=== PATIENT | female | born 1975 | race Caucasian/White ===

== ENCOUNTER 2019-03-23 16:22 | Emergency (ER) | payer OTHER ==
--- OUTSIDE RECORDS SUMMARY | 2019-03-23 17:00 | XMS REPORT | Continuity of Care Document ---
:1975 External Reference #:[id number] Author Name Otilio Batista M.D. Address [address] [place] [address] Care Team Providers Name Role Phone Jigar Evans Primary Care Physician Unavailable Payers Date Identification Numbers Payment Provider Subscriber Effective: 2016 Policy Number: [id number] [employer] Ppo Yariel Rivera PayID: [id number] [address] [place] [address] Family History Date Family Member(s) Observation Comments Father Heart Disease Mother A&W Children None Siblings 1 Siblings Oldest of 2 children First Sister A&W Maternal Grandfather due to Old Age () Maternal Grandmother due to Alzheimer's Disease () Social History Type Date Description Comments Sex Unknown Education Highest Level Completed, Master's Degree Marital Status Single Lives With Alone Diet Healthy, Well Balanced 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 Cigarette Use Former Cigarette Smoker ETOH Use Currently consumes alcohol Recreational Drug Use Denies Drug Use Tobacco Use Start: Unknown End: Patient is a former Unknown smoker Smoking Status Reviewed: 03/02/19 Patient is a former smoker Exercise Type/Frequency Exercises regularly Seat Belt/Car Seat Always uses seat belt Currently Active Patient is currently sexually active Contraceptive Methods Current methods include ring (Nuva) STD's Genital Warts STD's HPV Allergies, Adverse Reactions, Alerts Description No Known Drug Allergies Medications Active Medications SIG Qnty Indications Ordering Date Provider Nuvaring place nuvaring 1units Tanner Campos, 01/12/2019 in vagina for 3 CNM 0.12-0.015mg/24HR Ring weeks, remove x [address] a new one Symbicort Unknown 80-4.5mcg/Act Aerosol Adderall prn 120tabs Unknown 10mg Tablets Lexapro 1 po qd Unknown 20mg Tablets Multivitamins 1 po qd Unknown Capsules Klonopin Unknown History Medications Nuvaring place nuvaring in 3units Mendez Maki, 07/31/2016 - 0.12-0.015mg/24HR Ring vagina for 3 MD 04/14/2017 weeks, remove x 1 week, then place a new one Nuvaring place nuvaring Unknown - 0.12-0.015mg/24HR Ring for 3 weeks, 07/31/2016 remove x 1 week Claritin Unknown - 08/27/2017 Medications Administered in Office Medication SIG Qnty Indications Ordering Provider Date PT SCRN Tbco Id as Non User Otilio Batista M.D. 08/30/2018 Injection Vital Signs Date Vital Result Comment 03/02/2019 2:55pm BP Systolic 102 mmHg BP Diastolic 62 mmHg Height 67.5 inches 5'7.50" Weight 115.00 lb BMI (Body Mass Index) 17.7 kg/m2 0 08/30/2018 3:08pm BP Systolic 106 mmHg BP Diastolic 68 mmHg Height 67.5 inches 5'7.50" Weight 117.00 lb BMI (Body Mass Index) 18.1 kg/m2 Last Menstrual Period [id number] 0 08/27/2017 10:55am BP Systolic 122 mmHg BP Diastolic 72 mmHg Height 67.5 inches 5'7.50" Weight 122.00 lb BMI (Body Mass Index) 18.8 kg/m2 Last Menstrual Period [id number] 0 04/14/2017 9:03am BP Systolic 110 mmHg BP Diastolic 64 mmHg Height 67.5 inches 5'7.50" Weight 113.00 lb BMI (Body Mass Index) 17.4 kg/m2 0 09/03/2016 10:06am BP Systolic 118 mmHg BP Diastolic 82 mmHg Height 67.5 inches 5'7.50" Weight 119.00 lb BMI (Body Mass Index) 18.4 kg/m2 Last Menstrual Period [id number] 0 Parity 0 07/31/2016 9:10am BP Systolic 122 mmHg BP Diastolic 70 mmHg Height 67.5 inches 5'7.50" Weight 118.00 lb BMI (Body Mass Index) 18.2 kg/m2 Last Menstrual Period [id number] Results Test Date Facility Test Result H/L Range Note Laboratory test 03/02/2019 [facility] Cytology <pending> [place] [address] [phone] Laboratory test 03/02/2019 [facility] Hepatitis B <pending> [place] [address] Surface Ag [phone] Hepatitis C Antibody <pending> Syphillis Igg W/Reflex RPR <pending> Laboratory 08/30/2018 [facility] Cytology SEE RESULT 1 test [place] [address] BELOW [phone] HIV 1&2 AB 08/30/2018 [facility] HIV 1 2 Nonreactive Nonreactive 2 W/[place] [address] Antibody Results [phone] Laboratory 08/30/2018 [facility] Hepatitis B Nonreactive Nonreactive 3 [place] [address] Surface Ag [phone] Hepatitis C 08/30/2018 [facility] HCV Index < 0.0 [place] [address] [phone] Hepatitis C Antibody Nonreactive Nonreactive Laboratory 08/30/2018 [facility] Syphillis Nonreactive Nonreactive 4 [place] [address] Igg W/Reflex [phone] RPR Laboratory 08/27/2017 [facility] Cytology SEE RESULT 5 [place] [address] BELOW [phone] Laboratory 04/14/2017 [facility] Surgical SEE RESULT 6, 7 [place] [address] Pathology BELOW [phone] Laboratory 09/03/2016 [facility] Surgical SEE RESULT 8 [place] [address] Pathology BELOW [phone] HIV 1/2 AB 07/31/2016 [facility] HIV 1 2 Nonreactive N Nonreactive 9 [place] [address] Antibody [phone] Laboratory 07/31/2016 [facility] Hepatitis B Nonreactive N Nonreactive 10 [place] [address] Surface Ag [phone] Hepatitis C Antibody Nonreactive N Nonreactive 11 Herpes Simplex 07/31/2016 [facility] Herpes Simplex Negative N Negative Type 1&2 [place] [address] Virus I IgG AB [phone] Herpes Simplex Virus II IgG AB Negative N Negative 12 Herpes 07/31/2016 [facility] Herpes Simplex Negative N Negative 13 [place] [address] Type 1 2 IgM 1&2 Igm [phone] Laboratory 07/31/2016 [facility] Syphillis Igg Nonreactive N Nonreactive 14 [place] [address] W/Reflex RPR [phone] Laboratory 07/31/2016 [facility] Cytology SEE RESULT 15 [place] [address] BELOW [phone] GC/Chlamydia 07/31/2016 [facility] Chlamydia Negative [place] [address] trachomatis [phone] Rna Neisseria gonorrhoeae (GC) Rna Negative N Negative Laboratory test 07/31/2016 [facility] Trichomonas Negative N Negative 16 [place] [address] Vaginalis Rna [phone] Human Papilloma Virus Rna POSITIVE Abnormal Negative 17 1 SEE RESULT BELOW Name: YARIEL RIVERA : [address]: Otilio Batista MD Acct: [id number] Unit: [id number] AGE: 43 Location: [facility] Re08/30/18 SEX: F Status: REG REF SPEC: [id number] VINOD: 08/30/18-[address]: Otilio Batista MD REQ: [id number] RECD: 08/31/18120 STATUS: GARETH BENITEZ DR: 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 A. Ectocervical/Endocervical Specimen Adequacy: Satisfactory of evaluation Transformation zone component identified Patient Information: HPV: High risk HPV RNA testing regardless of pap results. Actual Specimen Date: 08/30/18 Last Menstrual Date: 08/02/18 Date of Last Specimen: 08/27/17 Signed by and Reported on: JOZEF Marsh (ASCP) 1537 This Pap test was evaluated with the assistance of the ThinPrep Test Imaging System. Due to cytologic findings at the production team advisor microscope, comprehensive manual rescreening by a Certified Nurse may be required. The Pap Smear is a screening test designed to aid in the detection of premalignant and malignant conditions of the uterine cervix. It is not a diagnostic procedure and should not be used as the sole means of detecting cervical cancer. Both false- positive and false- negative reports do occur. Depending on your risk status, a Pap smear should be obtained and evaluated every 1-3 years. END OF REPORT DEPARTMENT OF PATHOLOGY, [address] [place] [address] Varun Nieves M.D. Director [facility] # [id number] 2 It is recognized that currently available assays for the detection of antibodies to HIV-1 and/or HIV-2 may not detect all infected individuals. HIV antibodies may be undetectable in some stages of the infection and in some clinical conditions. The performance of this assay has not been established for populations of infants or children. Assayed by Chemiluminescence Microparticle Immunoassay on the Siemens Advia Centaur CP. Values obtained with different methods or kits cannot be used interchangeably.The diagnostic specificity of the ADVIA Centaur 1/O/2 Enhanced assay in the low risk population was 99.90% (6052/6058) with a 95% confidence interval of 99.78 to 99.96%. 3 [id number] NO LAV RECEIVED 4 Warning: A positive result is not useful for establishing a diagnosis of syphilis. In most situations, such a result may reflect a prior treated infection; a negative result can exclude a diagnosis of syphilis except for incubating or early primary disease. 5 SEE RESULT BELOW Name: YARIEL RIVERA : [address]: Otilio Batista MD Acct: [id number] Unit: [id number] AGE: 42 Location: [facility] Re08/27/17 SEX: F Status: REG REF SPEC: [id number] VINOD: 08/27/17-[address]: Otilio Batista MD REQ: [id number] RECD: 08/27/17 STATUS: SOUT _ ORDERED: TP IMAGE ANAL, FRESH WORK WRAPPER LAYER PHYS INTERP, HPV/Thin Prep COMMENTS: [id number] EPITHELIAL CELL ABNORMALITIES Atypical squamous cells of undetermined significance A. Ectocervical/Endocervical Specimen Adequacy: Satisfactory of evaluation Transformation zone component identified Patient Information: HPV: High risk HPV RNA testing regardless of pap results. Actual Specimen Date: 08/27/17 Last Menstrual Date: 08/14/17 Date of Last Specimen: 08/01/16 Date Time Test Result Flag (u) Normal Range 08/27/17 1141 @ HPV RNA POSITIVE H Negative @ @ The high-risk HPV types detected by the assay include: 16, @ 18, 31, 33, 35, 39, 45, 51, 52, 56, 58, 59, 66, and 68. Signed (signature on file) Lorin Acosta MD 05/07 1718 This Pap test was evaluated with the assistance of the ElliePrep Test Imaging System. Due to cytologic findings at the production team advisor microscope, comprehensive manual rescreening by a Certified Nurse may be required. The Pap Smear is a screening test designed to aid in the detection of premalignant and malignant conditions of the uterine cervix. It is not a diagnostic procedure and should not be used as the sole means of detecting cervical cancer. Both false- positive and false- negative reports do occur. Depending on your risk status, a Pap smear should be obtained and evaluated every 1-3 years. END OF REPORT * ML=Testing performed at Main Lab DEPARTMENT OF PATHOLOGY, [address] [place] [address] Varun Nieves M.D. Director [facility] # [id number] SEE RESULT BELOW Name: YARIEL RIVERA : [address]: Otilio Batista MD Acct: [id number] Unit: [id number] AGE: 41 Location: [facility] Re04/14/17 SEX: F Status: REG REF SPEC: [id number] VINOD: 04/14/17-[address]: Otilio Batista MD REQ: [id number] RECD: 04/14/17 STATUS: SOUT _ ORDERED: LEVEL 4 COMMENTS: [id number] FINAL DIAGNOSIS Skin, right vulva, biopsy: -- Condyloma acuminatum. -- No high grade dysplasia or malignancy. PRE-OPERATIVE DIAGNOSIS Condyloma GROSS DESCRIPTION The specimen is received in formalin labeled, Biopsy of Right Vulva, and consists of three lopez-white hairbearing bosselated to papilliferous nodular skin fragments ranging from 0.3 x 0.1 x 0.1 cm to 0.7 x 0.4 x 0.3 cm. The largest fragment is inked, longitudinally bisected and the specimen is entirely submitted in one cassette. Signed (signature on file) Lorin Acosta MD 1141 END OF REPORT * ML=Testing performed at Main Lab DEPARTMENT OF PATHOLOGY, [address] [place] [address] Varun Nieves M.D. Director [facility] # [id number] 8 SEE RESULT BELOW Name: YARIEL RIVERA : [address]: Kellen Mathis MD Acct: [id number] Unit: [id number] AGE: 41 Location: [facility] Re09/03/16 SEX: F Status: REG REF SPEC: [id number] VINOD: 09/03/16 [facility] DR: Kellen Mathis MD REQ: [id number] RECD: 09/03/16 STATUS: SOUT _ ORDERED: P16 STAIN, LEVEL IV/2 COMMENTS: [id number] THIS IS A CORRECTED REPORT 09/22/16-1010 Corrected Report FINAL DIAGNOSIS 1. Uterus, cervix, 8:00, biopsy: -- Partially denuded cervical tissue with no evidence of HPV-related viral cytopathic effect or squamous dysplasia. 2. Uterus, cervix, 12:00, biopsy: -- Cervical tissue with no evidence of HPV-related viral cytopathic effect or squamous dysplasia. Comment: An immunohistochemical stain for p16 (HPV surrogate marker) was performed with appropriate controls on part 2 and is negative. PRE-OPERATIVE DIAGNOSIS Atypical squamous cells of undetermined significance, positive human papilloma virus GROSS DESCRIPTION 1. The specimen is received in formalin labeled, Cervical Biopsy 8:00, and consists of a 0.3 x 0.3 x 0.2 cm lopez-caraballo irregular soft tissue fragment admixed with mucus. The specimen is inked and entirely submitted in one cassette. 2. The specimen is received in formalin labeled, Cervical Biopsy 12:00, and consists of a 0.3 x 0.2 x 0.1 cm lopez irregular soft tissue fragment admixed with mucus. The specimen is inked and entirely submitted in one cassette. Signed (signature on file) Varun Nieves MD 1401 END OF REPORT * ML=Testing performed at Main Lab DEPARTMENT OF PATHOLOGY, [address] [place] [address] Varun Nieves M.D. Director [facility] # [id number] 9 It is recognized that currently available assays for the detection of antibodies to HIV-1 and/or HIV-2 may not detect all infected individuals. HIV antibodies may be undetectable in some stages of the infection and in some clinical conditions. The performance of this assay has not been established for populations of infants or children. Assayed by Chemiluminescence Microparticle Immunoassay on the Siemens Advia Centaur CP. Values obtained with different methods or kits cannot be used interchangeably.The diagnostic specificity of the ADVIA Centaur 1/O/2 Enhanced assay in the low risk population was 99.90% (6052/6058) with a 95% confidence interval of 99.78 to 99.96%. 10 [id number] Test Performed by: [address] [address] Social Worker Clinical: Kishor Baldwin II, M.D., Ph.D. 13 ADDITIONAL INFORMATION This test has been modified from the software packaging engineer's instructions. Its performance characteristics were determined by [facility] in a manner consistent with CLIA requirements. This test has not been cleared or approved by the U.S. Food and Drug Administration. Test Performed by: [address] [address] Social Worker Clinical: Kishor Baldwin II, M.D., Ph.D. 14 Warning: A positive result is not useful for establishing a diagnosis of syphilis. In most situations, such a result may reflect a prior treated infection; a negative result can exclude a diagnosis of syphilis except for incubating or early primary disease. 15 SEE RESULT BELOW Name: YARIEL RIVERA : [address]: Mendez Maki MD Acct: [id number] Unit: [id number] AGE: 41 Location: [facility] Re07/31/16 SEX: F Status: REG REF SPEC: [id number] VINOD: 07/31/16-1005 [facility] DR: Mendez Maki MD REQ: [id number] RECD: 07/31/16 STATUS: SOUT _ ORDERED: IMAGE ANALYSIS, PAP SM PATH REV, HPV/Thin Prep COMMENTS: [id number] FINAL DIAGNOSIS EPITHELIAL CELL ABNORMALITIES Atypical squamous cells of undetermined significance A. Ectocervical/Endocervical Specimen Adequacy: Satisfactory of evaluation Transformation zone component identified Patient Information: HPV: High risk HPV RNA testing regardless of pap results. Actual Specimen Date: 07/31/16 Last Menstrual Date: 07/14/16 Date Time Test Result Flag (u) Normal Range 07/31/16 0937 HPV RNA POSITIVE H Negative The high-risk HPV types detected by the assay include: 16, 18, 31, 33, 35, 39, 45, 51, 52, 56, 58, 59, 66, and 68. Signed (signature on file) Lorin Acosta MD 08/06 0318 This Pap test was evaluated with the assistance of the [employer] Test Imaging System. Due to cytologic findings at the production team advisor microscope, comprehensive manual rescreening by a Certified Nurse may be required. The Pap Smear is a screening test designed to aid in the detection of premalignant and malignant conditions of the uterine cervix. It is not a diagnostic procedure and should not be used as the sole means of detecting cervical cancer. Both false- positive and false- negative reports do occur. Depending on your risk status, a Pap smear should be obtained and evaluated every 1-3 years. END OF REPORT * ML=Testing performed at Main Lab DEPARTMENT OF PATHOLOGY, [address] [place] [address] Varun Nieves M.D. Director [facility] # [id number] 16 [id number] GC/Chlamydia Source?: Thin Prep HPV Source?: Thin Prep Trichomonas Source: Thin Prep 17 The high-risk HPV types detected by the assay include: 16, 18, 31, 33, 35, 39, 45, 51, 52, 56, 58, 59, 66, and 68. Procedures Date Code Description Status 04/14/2017 49777 Excise Benign Lesion .6-1CM Completed Scalp/Neck/Hands/Feet/Genitalia 09/03/2016 98532 Colposcopy W/Biopsy Cervix/Endocervical Curettage Completed 09/21/2015 29109521 Mammogram Completed Encounters Type Date Location Provider Dx Diagnosis Office Visit 08/30/2018 [facility] Office Otilio Batista Z01.419 Encntr for pasting machine offbearer exam 3:00p M.DDarnell (general) (routine) w/o abn findings Z11.3 Encntr screen for infections w sexl mode of transmiss Office Visit 08/27/2017 11:00a [facility] Office Otilio Laura Z01.419 Encntr for pasting machine offbearer William Batista exam (general) (routine) w/o abn findings Office Visit 09/03/2016 10:30a [facility] Kellen Mathis, R87.610 Atyp squam cell of MD undet signfc cyto smr crvx (Asc-[facility]) B97.7 Papillomavirus as the cause of diseases classified elsewhere Office Visit 07/31/2016 9:30a [facility] Office Denae Guaman01.411 Encntr for pasting machine offbearer MD exam (general) (routine) w abnormal findings Z11.3 Encntr screen for infections w sexl mode of transmiss 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
[2019-03-23] MEDS ORDERED: Lidocaine 1% MPF ** 5 ML VIAL ONE (17:50)
--- NOTE | 2019-03-23 17:53 | ED ---
Laceration/Wound HPI - HPI Summary HPI Summary: This patient is a 43 year old F presenting to [facility] with a chief complaint of laceration of middle finger occurring at 16:00. Pts finger was caught in a dog leash. Per triage, the patient rates the pain 8/10 in severity. - History of Current Complaint Stated Complaint: LT MIDDLE FINGER LAC PER PT Time Seen by Provider: 03/23/19 17:28 Hx Obtained From: Patient Mechanism of Injury: Sharp/Blunt Trauma Onset/Duration: Sudden Onset, Lasting Hours, Still Present Aggravating: Nothing Alleviating: Nothing Onset Severity: Severe Current Severity: Severe Pain Intensity: 8 Pain Scale Used: 0-10 Numeric Associated Signs & Symptoms: Pain - Allergy/Home Medications Allergies/Adverse Reactions: Allergies Allergy/AdvReac Type Severity Reaction Status Date / Time No Known Allergies Allergy Verified 10/02/17 13:15 PMH/Surg Hx/FS Hx/Imm Hx Sensory History: Denies: Hx Legally Blind EENT History: Denies: Hx Deafness Infectious Disease History: No Infectious Disease History: Denies: Traveled Outside the [place] in Last 30 Days - Family History Known Family History: Negative: Hypertension, Diabetes - Social History Alcohol Use: None Hx Substance Use: No Substance Use Type: Reports: None Hx Tobacco Use: Yes Smoking Status (MU): Former Smoker Review of Systems Negative: Fever Positive: Other - pos - laceration on finger All Other Systems Reviewed And Are Negative: Yes Physical Exam - Summary Physical Exam Summary: VITAL SIGNS: Reviewed. GENERAL: Patient is a well-developed and nourished female who is lying comfortable in the stretcher. Patient is not in any acute respiratory distress. HEAD AND FACE: No signs of trauma. No ecchymosis, hematomas or skull depressions. No sinus tenderness. EYES: PERRLA, EOMI x 2, No injected conjunctiva, no nystagmus. EARS: Hearing grossly intact. Ear canals and tympanic membranes are within normal limits. MOUTH: Oropharynx within normal limits. NECK: Supple, trachea is midline, no adenopathy, no JVD, no carotid bruit, no c- spine tenderness, neck with full ROM. CHEST: Symmetric, no tenderness at palpation LUNGS: Clear to auscultation bilaterally. No wheezing or crackles. CVS: Regular rate and rhythm, S1 and S2 present, no murmurs or gallops appreciated. ABDOMEN: Soft, non-tender. No signs of distention. No rebound no guarding, and no masses palpated. Bowel sounds are normal. EXTREMITIES: FROM in all major joints, no edema, no cyanosis or clubbing. Laceration in left middle finger ??. NEURO: Alert and oriented x 3. No acute neurological deficits. Speech is normal and follows commands. SKIN: Dry and warm Triage Information Reviewed: Yes Vital Signs On Initial Exam: Initial Vitals Temp Pulse Resp BP Pulse Ox 98.2 F 90 19 136/108 96 03/23/19 16:29 03/23/19 16:29 03/23/19 16:29 03/23/19 16:29 03/23/19 16:29 Vital Signs Reviewed: Yes Procedures - Laceration/Wound Repair 1 Location: upper extremity - left middle finger Anesthesia: 1.0%, Lido Length, Depth and Shape: 4.5 cm Suture Type: Nylon Number of Sutures: 18 Diagnostics - Vital Signs Vital Signs Temp Pulse Resp BP Pulse Ox 03/23/19 16:29 98.2 F 90 19 136/108 96 - Laboratory Lab Statement: Any lab studies that have been ordered have been reviewed, and results considered in the medical decision making process. - Radiology Finger X-Ray Radiology Interpretation Completed By: Radiologist Summary of Radiographic Findings: Finger X-Ray reveals, per radiologist,. IMPRESSION: No fracture or foreign body is identified in the left middle finger with. suggestion of soft tissue injury in the volar aspect of the level of the middle phalanx. ED physician has reviewed this radiology report. Laceration Repair Course/Dx - Course Assessment/Plan: This patient is a 43 year old F presenting to [facility] with a chief complaint of laceration of middle finger occurring at 16:00. Pts finger was caught in a dog leash. Per triage, the patient rates the pain 8/10 in severity. Laceration was repaired without any complications. Patient is up-to- date on vaccinations. She will be discharged home with follow-up with PCP or return to the emergency department in 10 days for suture removal. - Clinical Impression Provider Diagnoses: Laceration Discharge - Sign-Out/Discharge Documenting (check all that apply): Patient Departure - Discharge Patient Received Moderate/Deep Sedation with Procedure: No - Discharge Plan Condition: Stable Disposition: HOME Patient Education Materials: Laceration (ED) Referrals: Jigar Evans NP [Primary Care Provider] - 3 Days Additional Instructions: Follow up with your primary care provider within three days RETURN TO THE ED FOR ANY WORSENING OR NEW SYMPTOMS. - Billing Disposition and Condition Condition: STABLE Disposition: Home - Attestation Statements Document Initiated by Tessy: Yes Documenting Scribe: Mary Lambert Provider For Whom Tessy is Documenting (Include Credential): Dr. Richardson Schulz MD Scribe Attestation: Mary Culver scribed for Dr. Richardson Schulz MD on 03/25/19 at 2009. Scribe Documentation Reviewed: Yes Provider Attestation: The documentation as recorded by the Mary krause accurately reflects the service I personally performed and the decisions made by me, Dr. Richardson Schulz MD Status of Scribe Document: Viewed
[2019-03-23 19:14] VITALS: BP 121/87
== END 2019-03-23 19:13 | disposition home or self-care (01) ==
LOC: ED 16:22
DX: S61.213A Laceration without foreign body of left middle finger without damage to nail, initial encounter (principal); X58.XXXA Exposure to other specified factors, initial encounter; Y92.9 Unspecified place or not applicable; Z87.891 Personal history of nicotine dependence
CPT/HCPCS: 12002; 73140; 99282